=== PATIENT | female | born 1970 | race Caucasian/White ===

== ENCOUNTER 2023-01-05 01:25 | Day surgery (SDC) | payer BC, OTHER, SELFPAY ==
[2023-01-05 09:17] VITALS: BP 136/66; PULSE 52; RESP 18; TEMP 36.6; O2SAT 100; BMI 33.3
[2023-01-05] MEDS: LACTATED RINGERS 1,000 ML 150 ML IV CONT (09:42)
--- NOTE | 2023-01-05 10:13 | WPDHPUPDATE1 ---
History and Physical Update Update Date/Time: 01/05/23 10:13 History and Physical has been reviewed, including an updated exam of the patient. There are NO changes in the patient's condition. Risks, benefits, and alternatives have been discussed and questions answered. Patient agrees to proceed with procedure.
--- NOTE | 2023-01-05 10:24 | P.PNAN_ITS ---
Anes - Initial Pre Proc Eval Procedure: Operation Date: 01/05/23 10:30 Proposed Procedures p Esophagogastroduodenoscopy EGD - Juan Carlos Santana MD Date/Time: 01/05/23 10:24 Surgeon: Juan Carlos Santana MD Pre Op Diagnosis: Gerd with out esophagitis Patient Data Age: 52 Gender: F Height: 1.63 m Weight: 88.1 kg Last Vital Signs Temp 98 F 01/05/23 09:17 Pulse 52 L 01/05/23 09:17 Resp 18 01/05/23 09:17 BP 136/66 01/05/23 09:17 Pulse Ox 100 01/05/23 09:17 O2 Del Method Room Air 01/05/23 09:17 Allergies Allergy/AdvReac Type Severity Reaction Status Date / Time No Known Allergies Allergy Verified 12/20/22 16:08 Home Medications Medication Instructions Recorded Confirmed Type alprazolam 0.25 mg tablet 0.25 mg PO QHS PRN 11/27/22 12/20/22 History ANXIETY/TRAVELING bupropion HCl 150 mg 24 hr tablet, 150 mg PO QAM 11/27/22 12/20/22 History extended release montelukast 10 mg tablet 10 mg PO DAILY 11/27/22 12/20/22 History simvastatin 20 mg tablet 20 mg PO DAILY 11/27/22 12/20/22 History topiramate 50 mg tablet 50 mg PO BID 11/27/22 12/20/22 History esomeprazole magnesium 40 mg 40 mg PO BID #60 caps 12/06/22 12/20/22 Rx capsule,delayed release (Nexium) norethindrone acetate 5 mg tablet 5 mg PO DAILY 12/06/22 12/20/22 History Patient hx anesthesia problems: none Family hx anesthesia problems: none Results Review: All pre-operative results and documents have been reviewed as part of the pre- operative evaluation. [facility] Past Medical History Medical History (Updated 12/06/22 @ 15:32 by Juan Carlos Santana MD) Anxiety Asthma CKD (chronic kidney disease) Depression GERD (gastroesophageal reflux disease) Migraine Obesity Osteoarthritis (arthritis due to wear and tear of joints) Social History Social History Years smoked: 20 Smoking status: Former smoker Tobacco type: cigarettes Alcohol intake: current Substance use: never Substance use type: does not use Living arrangements: with family Spiritual care concerns: No Anes - Eval Final PreProcedure Day of Procedure 01/05/23 10:24 Patient weight: obese Heart: regular rate and rhythm Lungs: clear to auscultation Airway: Mallampati scale class II Neurological: alert and oriented Last oral intake: >/= 8 hours ASA classification: II Emergent: no Anesthetic plan: proceed Anesthesia type and monitoring: general GIVS and standard monitoring Results Review: All pre-operative results and documents have been reviewed as part of the pre- operative evaluation. Informed Consent: The patient's anesthetic plan and its attendant risks and benefits were discussed with the patient/family/POA. Questions were solicited and answers provided to the satisfaction of the patient/family/POA.
[2023-01-05] MEDS: BENZOCAINE (*SP) 60 ML SPRAY CAN (HURRICAINE) 1 SPRAY MUCOUS MEM (10:53)
[2023-01-05 11:04] VITALS: BP 119/72; PULSE 64; RESP 18; O2SAT 100
[2023-01-05 11:14] VITALS: BP 108/64; PULSE 60; RESP 17; O2SAT 100
[2023-01-05 11:24] VITALS: BP 120/74; PULSE 60; RESP 16; O2SAT 100
--- NOTE | 2023-01-05 11:59 | SUR.PHASEII ---
1120 Patient states she obtained prescription for Nexium from Dr. Santana at recent office visit
== END 2023-01-05 11:30 | disposition home or self-care (01) ==
PROVIDERS: PCP Internal Medicine; Visit Provider Internal Medicine Gastroenterology
PROC: 0DJ08ZZ Inspection of Upper Intestinal Tract, Via Natural or Artificial Opening Endoscopic (ICD-10-PCS; CPT 43235; principal; 2023-01-05 10:30)
DX: K21.9 Gastro-esophageal reflux disease without esophagitis (principal); K44.9 Diaphragmatic hernia without obstruction or gangrene; J45.909 Unspecified asthma, uncomplicated; N18.9 Chronic kidney disease, unspecified; F41.9 Anxiety disorder, unspecified; F32.A Depression, unspecified; E66.9 Obesity, unspecified; Z68.33 Body mass index [BMI] 33.0-33.9, adult; Z87.891 Personal history of nicotine dependence
CPT/HCPCS: 43239; 87081; J2704; J7120

== ENCOUNTER 2023-09-01 07:36 | Outpatient (CLI) | payer OTHER, SELFPAY ==
--- NOTE | ~2023-09-01 | MR_ITS ---
EXAMINATION: MR hip LT wo con DATE: 09/01/2023 08:30 INDICATION: Left hip pain. TECHNIQUE: Magnetic resonance imaging (MRI) of the left hip was performed without intravenous contras t. COMPARISON: None FINDINGS: Bones/cartilage: There is lumbar levocurvature. No fracture. There is sclerosis in left ilium. There is deep partial t hickness cartilage loss in right hip joint superiorly. Small [id number] images demonstrate shallow partial-thickness cartilage loss in left hip joint. There are subchondral cysts in left acetabulum. There are tiny osteophytes in the left hip joint. Labrum: There is a tear of the left acetabular labrum. Fluid: There is no hip joint effusion. There is a 6 x 18 mm ganglion cyst posterior to the left hip joint. T here is mild bilateral trochanteric bursitis. Soft tissues: The iliopsoas tendons are normal. There is mild tendinopathy of the hamstring origins. Right gluteus medius minimus tendon is normal. There is mild right gluteus medius tendinopathy. There is mild left gluteus minimus and gluteus medius tendinopathy. IMPRESSION: 1. Sclerosis in left ilium suspicious for metastatic disease. 2. Moderate chondrosis of right hip. Mild chondrosis of left hip. Reviewed, dictated and finalized at location A.
== END 2023-09-01 07:37 | disposition home or self-care (01) ==
LOC: ANHIMG 07:37
PROVIDERS: PCP Internal Medicine; Visit Provider Orthopaedic Surgery
DX: M94.252 Chondromalacia, left hip (principal); M94.251 Chondromalacia, right hip; M89.9 Disorder of bone, unspecified
CPT/HCPCS: 73721